=== PATIENT | female | born 1970 | race Caucasian/White ===

== ENCOUNTER 2017-10-03 15:08 | Emergency (ER) | payer OTHER ==
[~2017-10-03] VITALS: Ht 157.5 cm; Wt 59.0 kg
[2017-10-03 16:15] LABS: INFLUENZA A NONE DETECTED (NONE DETECT); INFLUENZA B NONE DETECTED (NONE DETECT)
[2017-10-03 16:52] LABS: URINE BILIRUBIN - DIPSTICK NEGATIVE (NEGATIVE); URINE BLOOD DIPSTICK MODERATE (NEGATIVE); URINE COLOR YELLOW; URINE GLUCOSE - DIPSTICK NEGATIVE (NEGATIVE); URINE KETONE 15 mg/dL (NEGATIVE); URINE LEUK ESTERASE NEGATIVE (NEGATIVE); URINE NITRITE - DIPSTICK NEGATIVE (Negative); URINE PROTEIN - DIPSTICK TRACE mg/dL (NEG-TRACE); URINE SPECIFIC GRAVITY 1.025; URINE UROBILINOGEN - DIPSTICK 0.2 E.U./dL (0.2)
[2017-10-03 16:53] LABS: HEMATOCRIT 45.9 % (37.0-47.0); IMMATURE GRANULOCYTES 0.6 % (0.0-1.0); MEAN CELL VOLUME 91.8 fL CALC (80.0-100.0); MEAN CORPUSCULAR HGB CONC 34.9 g/L CALC (32.0-36.0); NEUT# 12.14 thou/uL (2.00-7.15); RED CELL DISTRI WIDTH 12.3 % (11.5-15.5)
[2017-10-03 16:53] LABS: URINE CLARITY CLEAR
[2017-10-03 17:16] LABS: URINE SQUAMOUS EPITHELIAL CELL FEW EPI/hpf (0-FEW); URINE WBC 0-2 WBC/hpf (0-5)
[2017-10-03 17:19] LABS: ALBUMIN 4.6 g/dL (3.2-5.0); ALKALINE PHOSPHATASE 81 u/l (38-126); ANION GAP 19 (6-22 (CALC)); BUN 24 mg/dL (7-17); BUN/CREATININE RATIO 25 (12-20 (CALC)); CALCIUM 10.7 mg/dL (8.4-10.2); CARBON DIOXIDE 30 mmol/l (22-30); CHLORIDE 94 mmol/l (95-108); GFR 59 ML/MIN (>=60 (CALC)); GFR FOR AFR.AMER. > 60 ML/MIN (>=60 (CALC)); GLUCOSE 111 mg/dL (65-105); LIPASE 88 u/l (23-300); POTASSIUM 3.8 mmol/l (3.5-5.1); SGOT/AST 23 u/l (14-36); SGPT/ALT 28 u/l (9-52); SODIUM 138 mmol/l (137-146); TOTAL PROTEIN 7.3 g/dL (6.3-8.2)
[2017-10-03] MEDS ORDERED: LORTAB 1010 MG PO (19:33)
[2017-10-03] MEDS ORDERED: ZOFRAN ODT4 MG PO (19:33)
[2017-10-03] MEDS ORDERED: CIPROFLOXACN500 MG PO (19:33)
[2017-10-03 20:32] VITALS: BP 156/89
== END 2017-10-03 20:35 | disposition home or self-care (01) | DRG 153 ==
LOC: ED 15:08
PROVIDERS: Family Medicine
DX: J06.9 Acute upper respiratory infection, unspecified (principal); D25.9 Leiomyoma of uterus, unspecified; N39.0 Urinary tract infection, site not specified; R53.1 Weakness; R51 Headache; R05 Cough; M79.1 Myalgia; R09.89 Other specified symptoms and signs involving the circulatory and respiratory systems
CPT/HCPCS: Q9967

== ENCOUNTER 2017-11-28 14:08 | Observation (INO) | payer OTHER ==
[~2017-11-28] VITALS: Ht 157.5 cm; Wt 61.0 kg
[~2017-11-28 14:08] MED LIST: CIPROFLOXACN500 MG PO; LORTAB 1010 MG PO; ZOFRAN ODT4 MG PO
[2017-11-28 15:13] LABS: HEMATOCRIT 43.1 % (37.0-47.0); HEMOGLOBIN 14.9 g/dl (12.0-16.0); IMMATURE GRANULOCYTES 0.5 % (0.0-1.0); MEAN CELL VOLUME 90.9 fL CALC (80.0-100.0); MEAN CORPUSCULAR HGB 31.4 pG CALC (26.0-32.0); MEAN CORPUSCULAR HGB CONC 34.6 g/L CALC (32.0-36.0); NEUT# 15.05 thou/uL (2.00-7.15); RED BLOOD COUNT 4.74 mill/uL (4.20-5.60); RED CELL DISTRI WIDTH 12.8 % (11.5-15.5)
[2017-11-28 15:28] LABS: URINE BILIRUBIN - DIPSTICK NEGATIVE (NEGATIVE); URINE BLOOD DIPSTICK SMALL (NEGATIVE); URINE COLOR YELLOW; URINE GLUCOSE - DIPSTICK NEGATIVE (NEGATIVE); URINE KETONE TRACE mg/dL (NEGATIVE); URINE LEUK ESTERASE NEGATIVE (NEGATIVE); URINE NITRITE - DIPSTICK NEGATIVE (Negative); URINE PROTEIN - DIPSTICK 30 mg/dL (NEG-TRACE); URINE SPECIFIC GRAVITY 1.025; URINE UROBILINOGEN - DIPSTICK 0.2 E.U./dL (0.2)
[2017-11-28 15:31] LABS: URINE CLARITY CLEAR
[2017-11-28 15:34] LABS: ALBUMIN 4.4 g/dL (3.2-5.0); ALKALINE PHOSPHATASE 85 u/l (38-126); ANION GAP 18 (6-22 (CALC)); BILIRUBIN, TOTAL 0.6 mg/dL (0.0-1.4); BUN 28 mg/dL (7-17); BUN/CREATININE RATIO 34 (12-20 (CALC)); CARBON DIOXIDE 26 mmol/l (22-30); CHLORIDE 101 mmol/l (95-108); CREATININE 0.8 mg/dL (0.5-1.0); GFR > 60 ML/MIN (>=60 (CALC)); GFR FOR AFR.AMER. > 60 ML/MIN (>=60 (CALC)); LIPASE 110 u/l (23-300); POTASSIUM 4.1 mmol/l (3.5-5.1); SGOT/AST 22 u/l (14-36); SGPT/ALT 27 u/l (9-52); SODIUM 141 mmol/l (137-146); TOTAL PROTEIN 7.1 g/dL (6.3-8.2)
[2017-11-28 16:10] LABS: URINE SQUAMOUS EPITHELIAL CELL RARE EPI/hpf (0-FEW)
[2017-11-28 16:11] LABS: URINE MUCUS FEW hpf (NONE-FEW)
[2017-11-28 19:35] VITALS: BP 219/110
[2017-11-28 20:32] LABS: BARBITURATES NEGATIVE (NEGATIVE); COCAINE NEGATIVE (NEGATIVE); METHADONE NEGATIVE (NEGATIVE); OXCYCODONE NEGATIVE (NEGATIVE); TETRAHYDROCANNABIONOL POSITIVE (NEGATIVE); TRICYLIC ANTIDEPRESSANTS NEGATIVE (NEGATIVE)
[2017-11-28 20:35] VITALS: BP 166/75
[2017-11-29 00:01] VITALS: BP 117/69
[2017-11-29 04:22] VITALS: BP 112/68
[2017-11-29 06:35] LABS: HEMATOCRIT 37.1 % (37.0-47.0); HEMOGLOBIN 12.7 g/dl (12.0-16.0); MEAN CELL VOLUME 92.5 fL CALC (80.0-100.0); MEAN CORPUSCULAR HGB 31.7 pG CALC (26.0-32.0); MEAN CORPUSCULAR HGB CONC 34.2 g/L CALC (32.0-36.0); RED BLOOD COUNT 4.01 mill/uL (4.20-5.60); RED CELL DISTRI WIDTH 12.9 % (11.5-15.5)
[2017-11-29 06:50] LABS: ANION GAP 12 (6-22 (CALC)); BUN 16 mg/dL (7-17); BUN/CREATININE RATIO 21 (12-20 (CALC)); CARBON DIOXIDE 26 mmol/l (22-30); CHLORIDE 107 mmol/l (95-108); CREATININE 0.8 mg/dL (0.5-1.0); GFR > 60 ML/MIN (>=60 (CALC)); GFR FOR AFR.AMER. > 60 ML/MIN (>=60 (CALC)); MAGNESIUM 1.8 mg/dL (1.6-2.3); POTASSIUM 3.4 mmol/l (3.5-5.1); SODIUM 141 mmol/l (137-146)
[2017-11-29 08:21] VITALS: BP 195/97
[2017-11-29 09:59] VITALS: BP 113/52
[2017-11-29 15:09] VITALS: BP 124/73
[2017-11-29 18:50] VITALS: BP 117/69
[2017-11-30 00:07] VITALS: BP 92/49
[2017-11-30 04:46] VITALS: BP 162/97
[2017-11-30 06:25] LABS: HEMATOCRIT 35.6 % (37.0-47.0); MEAN CELL VOLUME 95.4 fL CALC (80.0-100.0); MEAN CORPUSCULAR HGB 32.2 pG CALC (26.0-32.0); MEAN CORPUSCULAR HGB CONC 33.7 g/L CALC (32.0-36.0); RED BLOOD COUNT 3.73 mill/uL (4.20-5.60); RED CELL DISTRI WIDTH 13.3 % (11.5-15.5)
[2017-11-30 06:37] LABS: POTASSIUM 3.8 mmol/l (3.5-5.1)
[2017-11-30 07:38] VITALS: BP 156/91
[2017-11-30 08:04] VITALS: BP 156/91
== END 2017-11-30 08:14 | disposition left against medical advice (07) | DRG 392 ==
LOC: ED 14:08 → ED-I 18:14 → ED 18:25 → MS2 18:26
PROVIDERS: Family Medicine; Nurse Practitioner Family; ADMIT Internal Medicine; ATTEND Internal Medicine
DX: R11.2 Nausea with vomiting, unspecified (principal); K76.89 Other specified diseases of liver; D25.9 Leiomyoma of uterus, unspecified; R10.31 Right lower quadrant pain; I16.0 Hypertensive urgency; I10 Essential (primary) hypertension; R19.7 Diarrhea, unspecified; E87.6 Hypokalemia; N83.201 Unspecified ovarian cyst, right side
CPT/HCPCS: G0378; J2060; Q9967; S0164

== ENCOUNTER 2019-03-13 08:49 | Emergency (ER) | payer OTHER ==
[~2019-03-13] VITALS: Ht 157.5 cm; Wt 70.0 kg
[2019-03-13] MEDS ORDERED: KEFLEX500 M1 PO (09:43)
[2019-03-13] MEDS ORDERED: TORADOL PO (09:43)
[2019-03-13 10:11] VITALS: BP 148/78
== END 2019-03-13 10:04 | disposition home or self-care (01) ==
LOC: ED 08:49
DX: S60.351A Superficial foreign body of right thumb, initial encounter (principal); W26.8XXA Contact with other sharp object(s), not elsewhere classified, initial encounter; W45.8XXA Other foreign body or object entering through skin, initial encounter

== ENCOUNTER 2019-08-10 16:53 | Emergency (ER) | payer MEDICAID ==
[~2019-08-10] VITALS: Ht 157.5 cm; Wt 65.9 kg
[~2019-08-10 16:53] MED LIST changes: +KEFLEX500 M1 PO; +TORADOL PO
[2019-08-10 17:48] LABS: IMMATURE GRANULOCYTES 0.5 % (0.0-5.0); MEAN CELL VOLUME 89.7 fL CALC (80.0-100.0); MEAN CORPUSCULAR HGB 31.2 pG CALC (26.0-32.0); MEAN CORPUSCULAR HGB CONC 34.8 g/L CALC (32.0-36.0); NEUT# 13.33 thou/uL (2.00-7.15); RED BLOOD COUNT 5.35 mill/uL (4.20-5.60); RED CELL DISTRI WIDTH 12.5 % (11.5-15.5)
[2019-08-10 18:01] LABS: HEMOGLOBIN 16.7 g/dl (12.0-16.0)
[2019-08-10 18:03] LABS: ALBUMIN 4.9 g/dL (3.2-5.0); ALKALINE PHOSPHATASE 93 u/l (38-126); BUN 23 mg/dL (7-17); BUN/CREATININE RATIO 24 (12-20 (CALC)); CARBON DIOXIDE 24 mmol/l (22-30); GFR 59 ML/MIN (>=60 (CALC)); GFR FOR AFR.AMER. > 60 ML/MIN (>=60 (CALC)); LIPASE 428 u/l (23-300); POTASSIUM 3.6 mmol/l (3.5-5.1); SGOT/AST 26 u/l (14-36); SODIUM 136 mmol/l (137-146); TOTAL PROTEIN 8.3 g/dL (6.3-8.2)
[2019-08-10 18:04] LABS: ANION GAP 22 (6-22 (CALC)); BILIRUBIN, TOTAL 1.1 mg/dL (0.0-1.4); CHLORIDE 94 mmol/l (95-108)
[2019-08-10 20:51] LABS: URINE BILIRUBIN - DIPSTICK NEGATIVE (NEGATIVE); URINE BLOOD DIPSTICK MODERATE (NEGATIVE); URINE COLOR YELLOW; URINE GLUCOSE - DIPSTICK NEGATIVE (NEGATIVE); URINE KETONE 15 mg/dL (NEGATIVE); URINE LEUK ESTERASE NEGATIVE (NEGATIVE); URINE NITRITE - DIPSTICK NEGATIVE (Negative); URINE PH 7.5 (4.5-8.0); URINE PROTEIN - DIPSTICK 30 mg/dL (NEG-TRACE); URINE SPECIFIC GRAVITY <=1.005; URINE UROBILINOGEN - DIPSTICK 0.2 E.U./dL (0.2)
[2019-08-10 21:01] LABS: URINE SQUAMOUS EPITHELIAL CELL FEW EPI/hpf (0-FEW)
[2019-08-10] MEDS ORDERED: REGLAN10 MG PO (21:11)
[2019-08-10] MEDS ORDERED: ZOFRAN4 MG/TAB PO (21:11)
[2019-08-10 21:47] VITALS: BP 168/89
== END 2019-08-10 21:42 | disposition home or self-care (01) ==
LOC: ED 16:53
DX: R11.2 Nausea with vomiting, unspecified (principal); I10 Essential (primary) hypertension
CPT/HCPCS: Q9967

== ENCOUNTER 2019-12-18 16:59 | Emergency (ER) | payer MEDICAID ==
[~2019-12-18 16:59] MED LIST changes: +REGLAN10 MG PO; +ZOFRAN4 MG/TAB PO
[2019-12-18] MEDS ORDERED: KEFLEX500 M1 PO (17:41)
[2019-12-18] MEDS ORDERED: CIPROFLOXACN500 MG PO (17:41)
[2019-12-18 17:43] VITALS: BP 139/90
== END 2019-12-18 17:47 | disposition home or self-care (01) | DRG 605 ==
LOC: ED 16:59
DX: S91.332A Puncture wound without foreign body, left foot, initial encounter (principal); I10 Essential (primary) hypertension; W60.XXXA Contact with nonvenomous plant thorns and spines and sharp leaves, initial encounter; Y93.89 Activity, other specified; Y92.828 Other wilderness area as the place of occurrence of the external cause

== ENCOUNTER 2020-01-20 | Emergency (ER) | payer MEDICAID ==
[2020-01-20 13:26] LABS: HEMATOCRIT 43.6 % (37.0-47.0); IMMATURE GRANULOCYTES 0.7 % (0.0-5.0); MEAN CELL VOLUME 97.1 fL CALC (80.0-100.0); MEAN CORPUSCULAR HGB 31.2 pG CALC (26.0-32.0); MEAN CORPUSCULAR HGB CONC 32.1 g/dL CAL (32.0-36.0); NEUT# 8.03 thou/uL (2.00-7.15); RED BLOOD COUNT 4.49 mill/uL (4.20-5.60); RED CELL DISTRI WIDTH 13.3 % (11.5-15.5)
[2020-01-20 13:45] LABS: ALBUMIN 4.6 g/dL (3.2-5.0); ALKALINE PHOSPHATASE 75 u/l (38-126); ANION GAP 15 (6-22 (CALC)); BUN 15 mg/dL (7-17); BUN/CREATININE RATIO 18 (12-20 (CALC)); CARBON DIOXIDE 22 mmol/l (22-30); CHLORIDE 103 mmol/l (95-108); CREATININE 0.9 mg/dL (0.5-1.0); GFR > 60 ML/MIN (>=60 (CALC)); GFR FOR AFR.AMER. > 60 ML/MIN (>=60 (CALC)); POTASSIUM 3.4 mmol/l (3.5-5.1); SGOT/AST 24 u/l (14-36); SODIUM 136 mmol/l (137-146); TOTAL PROTEIN 7.5 g/dL (6.3-8.2)
[2020-01-20 14:03] LABS: BILIRUBIN, TOTAL 0.4 mg/dL (0.0-1.4)
== END 2020-01-20 15:06 | DRG 999 ==
DX: T22.311A Burn of third degree of right forearm, initial encounter (principal); T23.301A Burn of third degree of right hand, unspecified site, initial encounter; T24.311A Burn of third degree of right thigh, initial encounter; T24.321A Burn of third degree of right knee, initial encounter; T25.321A Burn of third degree of right foot, initial encounter; T31.10 Burns involving 10-19% of body surface with 0% to 9% third degree burns; I10 Essential (primary) hypertension; X04.XXXA Exposure to ignition of highly flammable material, initial encounter; Y92.000 Kitchen of unspecified non-institutional (private) residence as the place of occurrence of the external cause

== ENCOUNTER 2020-08-04 10:31 | Emergency (ER) | payer MEDICAID ==
[~2020-08-04] VITALS: Ht 157.5 cm; Wt 70.0 kg
[2020-08-04 11:27] LABS: URINE BILIRUBIN - DIPSTICK SMALL (NEGATIVE); URINE BLOOD DIPSTICK LARGE (NEGATIVE); URINE COLOR YELLOW; URINE GLUCOSE - DIPSTICK NEGATIVE (NEGATIVE); URINE KETONE TRACE mg/dL (NEGATIVE); URINE LEUK ESTERASE NEGATIVE (NEGATIVE); URINE NITRITE - DIPSTICK NEGATIVE (Negative); URINE PROTEIN - DIPSTICK 100 mg/dL (NEG-TRACE); URINE SPECIFIC GRAVITY >=1.030; URINE UROBILINOGEN - DIPSTICK 0.2 E.U./dL (0.2)
[2020-08-04 11:28] LABS: HEMATOCRIT 48.3 % (37.0-47.0); IMMATURE GRANULOCYTES 0.5 % (0.0-5.0); MEAN CELL VOLUME 91.3 fL CALC (80.0-100.0); MEAN CORPUSCULAR HGB 31.2 pG CALC (26.0-32.0); MEAN CORPUSCULAR HGB CONC 34.2 g/dL CAL (32.0-36.0); NEUT# 10.37 thou/uL (2.00-7.15); RED BLOOD COUNT 5.29 mill/uL (4.20-5.60); RED CELL DISTRI WIDTH 12.2 % (11.5-15.5); URINE EPITHELIAL CELLS FEW EPI/hpf (0-FEW); URINE RBC 25-50 RBC/hpf (0-5)
[2020-08-04 11:45] LABS: ALBUMIN 4.5 g/dL (3.2-5.0); ALKALINE PHOSPHATASE 89 u/l (38-126); BUN 21 mg/dL (7-17); BUN/CREATININE RATIO 24 (12-20 (CALC)); CREATININE 0.9 mg/dL (0.5-1.0); GFR > 60 ML/MIN (>=60 (CALC)); GFR FOR AFR.AMER. > 60 ML/MIN (>=60 (CALC)); POTASSIUM 3.6 mmol/l (3.5-5.1); SGOT/AST 34 u/l (14-36); SODIUM 133 mmol/l (137-146); TOTAL PROTEIN 7.7 g/dL (6.3-8.2)
[2020-08-04 11:47] LABS: ANION GAP 13 (6-22 (CALC)); BILIRUBIN, TOTAL 0.7 mg/dL (0.0-1.4); CARBON DIOXIDE 35 mmol/l (22-30); CHLORIDE 89 mmol/l (95-108); HEMOGLOBIN 16.5 g/dl (12.0-16.0)
[2020-08-04 13:35] VITALS: BP 150/90
== END 2020-08-04 13:35 | disposition home or self-care (01) ==
LOC: ED 10:31
PROVIDERS: Family Medicine
DX: D25.9 Leiomyoma of uterus, unspecified (principal); N93.9 Abnormal uterine and vaginal bleeding, unspecified; I10 Essential (primary) hypertension
CPT/HCPCS: Q9967

== ENCOUNTER 2022-10-06 16:34 | Emergency (ER) | payer MEDICARE, MEDICAID ==
[~2022-10-06] VITALS: Ht 157.5 cm; Wt 63.0 kg
[2022-10-06] MEDS ORDERED: VALACYCLOVIR HCL1 GM PO ×2 (17:25→18:15)
[2022-10-06 17:30] VITALS: BP 171/87
[2022-10-06] MEDS ORDERED: VOLTAREN1%GEL TOP (18:15)
[2022-10-06] MEDS ORDERED: MOTRIN400 MG/TAB PO (18:15)
[2022-10-06] MEDS ORDERED: FLEXERIL5 M1 PO (18:15)
[2022-10-06 18:58] VITALS: BP 171/87
== END 2022-10-06 19:05 | disposition home or self-care (01) ==
LOC: ED 16:34
DX: M25.512 Pain in left shoulder (principal); M25.531 Pain in right wrist; M25.551 Pain in right hip; I10 Essential (primary) hypertension

== ENCOUNTER 2024-03-22 06:44 | Emergency (ER) | payer MEDICARE ==
[~2024-03-22] VITALS: Ht 157.5 cm; Wt 68.0 kg
[2024-03-22] VITALS (13 sets, daily range): BP systolic 117–166; BP diastolic 77–106
[~2024-03-22 06:44] MED LIST changes: +FLEXERIL5 M1 PO; +MOTRIN400 MG/TAB PO; +VALACYCLOVIR HCL1 GM PO; +VOLTAREN1%GEL TOP
[2024-03-22] MEDS ORDERED: DIPHENOXYLATE W/ ATROPINE 2.5 MG TAB PO ONE (07:10)
[2024-03-22] MEDS ORDERED: ONDANSETRON HCl 4 MG/2 ML SDV IV ONE (07:10)
[2024-03-22] MEDS ORDERED: SODIUM CHLORIDE 0.9% 1,000 ML IV ONE ×2 (07:10→08:20)
[2024-03-22 07:43] LABS: BASO% 0.2 % (0-3); IMMATURE GRANULOCYTES 0.2 % (0.0-5.0); LYMPH% 9.7 % (15-41); MEAN CELL VOLUME 93.3 fL CALC (80.0-100.0); MEAN CORPUSCULAR HGB 30.8 pG CALC (26.0-32.0); MONO% 6.8 % (2-13); NEUT# 16.32 thou/uL (2.00-7.15); NEUT% 83.1 % (42-76); RED CELL DISTRI WIDTH 13.6 % (11.5-15.5)
[2024-03-22 07:44] LABS: HEMATOCRIT 37.3 % (37.0-47.0); HEMOGLOBIN 12.3 g/dl (12.0-16.0)
[2024-03-22 08:00] LABS: ALBUMIN 4.6 g/dL (3.2-5.0); CREATININE 0.9 mg/dL (0.5-1.0); TOTAL PROTEIN 7.9 g/dL (6.3-8.2)
[2024-03-22] MEDS ORDERED: PROMETHAZINE HCL 25 MG/ML AMP IM ONE (09:30)
[2024-03-22 09:48] LABS: URINE BLOOD DIPSTICK Moderate (NEGATIVE); URINE GLUCOSE - DIPSTICK Negative (NEGATIVE); URINE KETONE >=160 mg/dL (NEGATIVE); URINE LEUK ESTERASE Negative (NEGATIVE); URINE NITRITE - DIPSTICK Negative (Negative); URINE PH 5.5 (4.5-8.0); URINE PROTEIN - DIPSTICK >=300 mg/dL (NEG-TRACE); URINE SPECIFIC GRAVITY >=1.030; URINE UROBILINOGEN - DIPSTICK 0.2 E.U./dL (0.2)
[2024-03-22 09:51] LABS: URINE COLOR Yellow
[2024-03-22 09:52] LABS: URINE EPITHELIAL CELLS MODERATE EPI/hpf (0-FEW); URINE MUCUS MODERATE hpf (NONE-FEW)
[2024-03-22] MEDS ORDERED: PHENERGAN25 MG RE (09:57)
[2024-03-22] MEDS ORDERED: MACROBID100 M1 PO (09:57)
[2024-03-22] MEDS ORDERED: ONDANSETRON4 MG PO (10:01)
== END 2024-03-22 10:16 | disposition home or self-care (01) ==
LOC: ED 06:44
PROVIDERS: Family Medicine
DX: R11.2 Nausea with vomiting, unspecified (principal); N39.0 Urinary tract infection, site not specified; R31.9 Hematuria, unspecified; I10 Essential (primary) hypertension